=== PATIENT | male | born 1935 | race Asian ===

== ENCOUNTER → 2016-06-19 | Outpatient (CLI) | payer MEDICARE, OTHER ==
[~2016-06-19] MED LIST: LISI-661 PO; PERCT PO; SITA25 PO
== END | disposition home or self-care (01) ==
LOC: RADPV 12:44
PROVIDERS: ATTEND Pain Medicine Interventional Pain Medicine
DX: M17.0 Bilateral primary osteoarthritis of knee (principal); M23.8X2 Other internal derangements of left knee; M23.8X1 Other internal derangements of right knee